=== PATIENT | male | born 1950 | race Caucasian/White ===

== ENCOUNTER → 2021-12-17 | Outpatient (CLI) | payer MEDICARE, OTHER ==
[~2021-12-17] MED LIST: AUGMENTIN 875-1 EACH PO; BRIMONIDINE EYE DROP EYEBOTH; CARVEDILOL12.5 MG PO; CYCLOBENZAPRINE10 MG PO; ELIQUIS5 MG PO; HYDROCHLOROTHIA25 MG PO; KENALOG CREAM 015 GM TOP; LATANOPROST 0.7.5 ML OP; NORCO 5-325 TA1 EACH PO; OMEPRAZOLE20 M1 PO; TYLENOL WITH C1 EACH PO
== END ==
LOC: KOH-I 11:29
DX: M79.642 Pain in left hand (principal)
CPT/HCPCS: 73120